=== PATIENT | female | born 1945 | race Caucasian/White ===

== ENCOUNTER 2016-10-08 13:29 | Inpatient (IN) | payer OTHER ==
[~2016-10-08] VITALS: Ht 157.5 cm; Wt 86.4 kg
[2016-10-08 16:40] VITALS: Ht 157.5 cm; Wt 86.4 kg
[2016-10-08] MEDS ORDERED: bp pill (16:53)
[2016-10-08 16:55] VITALS: BP 145/77; PULSE 62; RESP 18
[2016-10-08] MEDS ORDERED: ZOLPIDEM 5 MG TAB PO PRN (17:30)
[2016-10-08] MEDS ORDERED: HYDROCODONE/APAP (5/325) TAB PO PRN (17:30)
[2016-10-08] MEDS ORDERED: ONDANSETRON 4 MG INJ IV PRN (17:30)
[2016-10-08] MEDS: DEXTROSE 5%-0.45% NACL 1,000 ML IV SCH (17:57)
[2016-10-08 20:08] VITALS: BP 156/74; RESP 18
[2016-10-08] MEDS: DOCUSATE SODIUM 100 MG CAP PO SCH (21:21)
[2016-10-09] VITALS (25 sets, daily range): BP systolic 132–152; BP diastolic 59–78; PULSE 58–94; RESP 14–23
[2016-10-09] MEDS: CEFTRIAXONE 1 GM/50 ML (PMX) 50 ML IVPB SCH (03:21)
[2016-10-09] MEDS ORDERED: PANTOPRAZOLE 40 MG INJ IV SCH (06:00)
[2016-10-09 07:23] LABS: ADD SCAN DIFF NO
[2016-10-09 07:31] LABS: BASOPHIL # 0.1 10^3/ul (0.0-0.1); EOSINOPHILS # 0.3 10^3/ul (0.0-0.5); EOSINOPHILS % 5.4 % (0.0-7.0); HEMATOCRIT 36.6 % (37.0-47.0); HEMOGLOBIN 11.9 g/dl (12.0-16.0); LYMPHOCYTES # 2.3 10^3/ul (0.8-2.9); LYMPHOCYTES % 36.5 % (15.0-51.0); MEAN CORPUSCULAR HEMOGLOBIN 29.7 pg (29.0-33.0); MEAN CORPUSCULAR HGB CONC 32.5 g/dl (32.0-37.0); MEAN CORPUSCULAR VOLUME 91.3 fl (82.0-101.0); MEAN PLATELET VOLUME 10.5 fl (7.4-10.4); MONOCYTE # 0.6 10^3/ul (0.3-0.9); MONOCYTES % 9.4 % (0.0-11.0); NEUTROPHILS % 47.4 % (39.0-77.0); PLATELET COUNT 276 10^3/UL (140-415); RED BLOOD COUNT 4.01 10^6/ul (4.20-5.40); RED CELL DISTRIBUTION WIDTH 13.3 % (11.5-14.5); WHITE BLOOD COUNT 6.3 10^3/ul (4.8-10.8)
[2016-10-09 07:54] LABS: ALBUMIN 3.6 g/dl (3.3-4.9)
[2016-10-09 07:55] LABS: POTASSIUM 4.1 mmol/L (3.5-5.1)
[2016-10-09 07:57] LABS: ALBUMIN/GLOBULIN RATIO 1.02; BILIRUBIN,INDIRECT 0.5 mg/dl (0-1.1); BILIRUBIN,TOTAL 0.5 mg/dl (0.2-1.3); CREATININE 0.87 mg/dl (0.44-1.00); TOTAL PROTEIN 7.1 g/dl (6.1-8.1)
[2016-10-09 07:58] LABS: CALCIUM 9.2 mg/dl (8.4-10.2)
[2016-10-09] MEDS: DOCUSATE SODIUM 100 MG CAP PO SCH ×2 (08:25→20:14)
--- NOTE | 2016-10-09 10:21 | PN ---
Date/Time of Note Date/Time of Note DATE: 10/09/16 TIME: Assessment/Plan Assessment/Plan Chief Complaint/Hosp Course 1. Pancreatitis probably secondary to gallstones improved -Lap tyson -Judicious fluid management 2. Cholelithiasis with possible mild cholecystitis -Antibiotics -IV fluids -OR 3. Transaminitis with possible choledocholithiasis. MRCP negative -Intraoperative cholangiogram 4. Morbid obesity with BMI of 35 and comorbidities -Nutrition optimization encouraged -Exercise encouraged 5. Hypertension -Nutrition and medication optimization -Weight loss encouraged 6. Dyslipidemia -Nutrition and medication optimization -Weight loss encouraged 7. Anemia without evidence of acute blood loss -Monitor Thank you, Problems: Subjective 24 Hr Interval Summary Denies fevers or chills. Minimal abdominal pain. No nausea vomiting. No chest pain or shortness of breath. No visual or neurologic changes. No dysuria. Bowel function. No headache. No seizure. No rashes. Skin color improved. Exam/Review of Systems Vital Signs Vitals Vital Signs Date Time Temp Pulse Resp B/P Pulse Ox O2 Delivery O2 Flow Rate FiO2 10/09/16 07:47 98.4 60 17 134/62 92 10/08/16 16:55 Room Air Intake and Output 10/08/16 10/08/16 10/09/16 15:00 23:00 07:00 Intake Total 300 ml Balance 300 ml Exam Constitutional: alert, obese, oriented, No distress Psych: nl mood/affect, No anxiety, No confusion Head: atraumatic, normocephalic Eyes: EOMI, PERRL, nl conjunctiva, No icteric ENMT: mucosa pink and moist, nl external ears & nose, nl lips & teeth Neck: non-tender, supple, No jvd Respiratory: normal air movement, No congested cough, No labored breathing Cardiovascular: nl pulses, regular rate and rhythm, No edema Gastrointestinal: soft, tender (Min epigastric), No firm, No rebound or guarding Musculoskeletal: nl extremities to inspection, nl gait and stance, No joint tenderness Extremities: normal pulses, No calf tenderness, No cyanosis Neurological: nl mental status, nl speech, nl strength, No confused Skin: nl turgor, No diaphoresis, No rash or lesions Lymph: nl lymph nodes Results Result Diagram: 10/09/1661910/09/16619 JOLENE THAKKAR MD Oct 09, 2016 10:21
--- NOTE | 2016-10-09 10:39 | CONS ---
DATE OF ADMISSION: 10/08/2016 DATE OF CONSULTATION: 10/09/2016 CHIEF COMPLAINT: 1. Abdominal pain. 2. Gallstone pancreatitis. 3. Transaminitis. 4. Morbid obesity. 5. Hypertension. 6. Dyslipidemia. 7. Urinary tract infection. HISTORY OF PRESENT ILLNESS: Ms. Shanthi Day is a 71-year-old female with multiple comorbidi ties who presented to [facility] with 3 days of abdominal pain associated with nausea and v omiting, but no fevers or chills. No chest pain or shortness of breath. No visual or neurologic ch anges. Her skin became more discolored and yellowish. At [place] she was found to have distende d gallbladder on ultrasound with multiple stones and slight pericholecystic fluid. There was biliar y dilatation up to [address] head showed also distended gallbladder with slightly dilated commo n bile duct. She also had stranding of the pancreas, particularly in the pancreatic tail and had LF Ts, amylase and lipase were elevated. The patient was admitted for further care and treatment. [facility] P apparently did not identify choledocholithiasis. The patient was planned to have surgery at [facility]; however, due to insurance capitation she was transferred here for further care and treatment. PAST MEDICAL HISTORY: 1. Morbid obesity with BMI of 35. 2. Hypertension. 3. Dyslipidemia. 4. Transaminitis. 5. Cholelithiasis. 6. Possible mild cholecystitis. 7. Pancreatitis. 8. Possible choledocholithiasis. PAST SURGICAL HISTORY: Denies. FAMILY HISTORY: Noncontributory. REVIEW OF SYSTEMS: A 12-point of systems negative unless addressed in HPI. SOCIAL HISTORY: Denies alcohol, drugs or tobacco. PHYSICAL EXAMINATION: VITAL SIGNS: Temperature is 98.2, pulse 62, blood pressure 145/77, satting 99% on room air. GENERAL: No acute distress, obese. HEENT: Pupils equal, reactive. No scleral icterus. Mucous membranes are moist. NECK: Supple, no JVD. CHEST: Normal respiratory effort. No wheezing. HEART: S1, S2 present. ABDOMEN: Soft, minimally tender in the epigastric region, no rebound, no guarding, not rigid. Nega tive Adam's. EXTREMITIES: No edema. VASCULAR: Capillary refill is 2 seconds. NEUROLOGIC: Alert, oriented, moves all 4 extremities grossly. SKIN: No rashes. No jaundice. LABORATORY AND RADIOGRAPHIC: As per chart and HPI. ASSESSMENT AND PLAN: Shanthi Day is a 71-year-old female with multiple significant comorbid ities. 1. Pancreatitis, probably secondary to gallstones has improved. We will obtain repeat labs. We wi ll proceed with cholecystectomy to prevent future attacks. 2. Transaminitis secondary to above and probably a passed gallstone; however, there may be smaller common duct stones (choledocholithiasis). We will try to obtain cholangiogram if the duct still loo ks dilated. 3. Morbid obesity with BMI 35 and comorbidities. Encourage diet optimization and exercise. 4. Hypertension. Encourage nutrition and medication optimization and weight loss. 5. Dyslipidemia. Encourage nutrition, medication optimization and weight loss. 6. Anemia without evidence of acute blood loss. Continue monitoring. Thank you very much for consulting me in this patient's care. Dictated By: JOLENE PALAFOX/LORA Conf#: [id number] DID#: [id number]
[2016-10-09 11:05] LABS: AMYLASE 91 U/L (11-123)
[2016-10-09] MEDS ORDERED: PROPOFOL 20 ML ONE (12:19)
[2016-10-09] MEDS ORDERED: FENTAnyl 50 MCG/ML VIAL ONE (12:19)
[2016-10-09] MEDS ORDERED: MIDAZOLAM 1 MG/ML 2 ML INJ ONE (12:19)
[2016-10-09] MEDS ORDERED: ROCURONIUM 50 MG INJ ONE (12:19)
[2016-10-09] MEDS ORDERED: IOHEXOL 300MG/ML 30 ML BTL ONE (12:25)
[2016-10-09] MEDS ORDERED: BUPIVACAINE 0.25%/EPI (SDV) 30 ML INJ ONE (12:25)
[2016-10-09] MEDS ORDERED: LIDOCAINE 1% (MPF) 30 ML INJ ONE (12:25)
[2016-10-09] MEDS ORDERED: ROPIVACAINE 0.2% 20 ML VIAL ONE (12:55)
[2016-10-09] MEDS ORDERED: ROPIVACAINE 0.5 % 30 ML VIAL ONE (12:56)
[2016-10-09] MEDS ORDERED: DIPHENHYDRAMINE 50 MG INJ IV PRN (13:30)
[2016-10-09] MEDS ORDERED: ONDANSETRON 4 MG INJ IV PRN (13:30)
[2016-10-09] MEDS ORDERED: FENTAnyl 50 MCG/ML VIAL IV PRN ×3 (13:30)
[2016-10-09] MEDS ORDERED: morphine (1 MG/ML) 10ML SYRINGE IV PRN ×3 (13:30)
[2016-10-09] MEDS ORDERED: HYDROmorphONE (0.2 MG/ML) 10ML SYG IV PRN ×3 (13:30)
[2016-10-09] MEDS ORDERED: METOCLOPRAMIDE 10 MG INJ IV PRN (13:30)
[2016-10-09] MEDS ORDERED: LABETALOL HCL 20MG INJ IV PRN (13:30)
[2016-10-09] MEDS ORDERED: EPHEDrine SULFATE 50 MG/5 ML SYG IV PRN (13:30)
[2016-10-09] MEDS ORDERED: hydrALAzine 20 MG INJ IV PRN (13:30)
[2016-10-09] MEDS ORDERED: MEPERIDINE 25 MG INJ IV PRN (13:30)
[2016-10-09] MEDS ORDERED: LABETALOL HCL 20MG INJ ONE (14:17)
[2016-10-09] MEDS ORDERED: GLYCOPYRROLATE 0.4 MG INJ ONE (14:18)
[2016-10-09] MEDS ORDERED: ONDANSETRON 4 MG INJ ONE (14:18)
[2016-10-09] MEDS ORDERED: NEOSTIGMINE 3 MG/3 ML SYRINGE ONE (14:18)
[2016-10-09] MEDS ORDERED: METOCLOPRAMIDE 10 MG INJ ONE (14:18)
[2016-10-09] MEDS ORDERED: KETOROLAC 30 MG INJ ONE (14:18)
[2016-10-09] MEDS ORDERED: DEXAMETHASONE 4 MG/ML 1 ML INJ ONE (14:18)
--- NOTE | 2016-10-09 14:22 | RADRPT ---
PROCEDURE: XR intraoperative cholangiogram.. CLINICAL INDICATION: Right upper quadrant abdomen pain. Intraoperative. TECHNIQUE: 4 frontal views of the right upper quadrant of the abdomen were obtained in the operati ng room. Images were obtained during injection of approximately 10 ml of Omnipaque-300 into the sebastien iary system. COMPARISON: None. FINDINGS: Surgical instruments are noted overlying the right upper quadrant of the abdomen. Contrast was inje cted into the cystic duct. The cystic duct, common bile duct, common hepatic duct, and main intrahepatic bile ducts all appear widely patent. Contrast enters the duodenum. There is no filling defect or evidence of obstruction. IMPRESSION: 1. Normal intraoperative cholangiogram with no evidence of filling defect or obstruction. RPTAT: QQ .Sergei Ugarte MD, MD Date Time Electronically viewed and signed by .Sergei Ugarte MD, on 10/09/2016 14:22 .R/
--- NOTE | 2016-10-09 14:53 | OPR ---
Date/Time of Note Date/Time of Note DATE: 10/09/16 TIME: 14:45 Operative Report Procedure Date: Oct 09, 2016 Procedure Description Preoperative Diagnosis: Gallstone pancreatitis Transaminitis Symptomatic cholelithiasis and mild cholecystitis BMI 35 Postoperative Diagnosis: Gallstone pancreatitis Transaminitis Symptomatic cholelithiasis and mild cholecystitis BMI 35 Operation(s) Performed: 1. 3 port laparoscopic cholecystectomy 2. Laparoscopic liver wedge resection biopsy 3. Laparoscopic intraoperative cholangiogram 4. Local anesthetic injection, [id number] Surgeon: JOLENE THAKKAR MD Anesthesia: general, local, & regional Anesthesiologist: Stanley Lopez MD Estimated Blood Loss: 20 ml's Specimens: Liver Gallbladder Tubes/Drains: None Complications: None Pt Condition Post Procedure: stable Disposition: PACU Indications: 71-year-old female with gallstones and abdominal pain here for cholecystectomy. Risks include but are not limited to bleeding, infection, abscess, seroma, damage to intestines, damage to the liver, damage to biliary tree, hernia formation, chronic pain, biloma, need for reoperations or further surgeries, IL , stroke, PE, DVT, pneumonia, organ failures, or even . Procedure Description: Patient was brought and placed supine on the operating table SCDs were placed, preoperative antibiotics were administered, all pressure points were well-padded , and after induction of anesthesia patient was prepped and draped in usual sterile fashion and timeout was performed. Bilateral TAP block was performed by anesthesia prior prepping her. Incision was made in the supraumbilical region, Veress was safely inserted, and after a negative SIP test, abdomen was insufflated to 15mmHg. Veress was removed and 5mm port was safely inserted. Laparoscopy was performed with a 5 mm 30 scope. No injuries were identified. The liver looks somewhat abnormal color. Gallbladder is without evidence of section. 12 mm port is placed in subxiphoid under direct visualization followed by another 5 mm port in the right upper quadrant. All port sites were injected with quarter percent Marcaine with epi and 1% lidocaine prior to any incisions. Patient was placed in reverse Trendelenburg and right side up on gallbladder was retracted superolaterally. The gallbladder was large and distended. Using electrocautery and blunt dissection I was able to identify the cystic artery and cystic duct. The duct [was dilated but] tapered into the gallbladder. Full critical angle view was identified. Cystic duct was clipped twice proximally once distally then transected. Decision was made to perform a cholangiogram. Cystotomy was created cholangiogram catheter was inserted and cholangiography was performed identifying dilated biliary intra-and extrahepatic. There is meniscus findings in the distal common bile duct with very minimal duodenal feeling after lots of pressure and contrast was used. At this point the catheter was removed and the large dilated cystic duct was transected with Endo ANKITA white load stapler with full formation of the dena. The gallbladder was taken off the liver with electrocautery. Hemostasis was obtained. Gallbladder was placed in an Endo Catch bag and removed through the subxiphoid port site. There was complete hemostasis. Due to the abnormality of the liver decision was made to perform liver wedge resection which was done with electrocautery and scissor with complete hemostasis right after. The specimen was sent to pathology for further evaluation. 12 mm made port site fascia was closed with Endo Close of an 0 Vicryl in a [id number] manner. Ports and CO2 were removed under direct visualization. Next complete hemostasis. Wounds were thoroughly irrigated skin was closed with 4-0 Monocryl in subcuticular fashion. Dermabond was applied. Patient was extubated and transferred to recovery room in stable condition and all counts were correct and the end of the operation 2.operation 2. Copies To: CC: ESTEBAN ANG MD; JOSSY BAÑUELOS MD, SAMUEL MD Oct 09, 2016 14:53
[2016-10-09] MEDS: DEXTROSE 5%-0.45% NACL 1,000 ML IV SCH (17:07)
--- NOTE | 2016-10-09 18:50 | QN ---
Documentation Comment [id number] JOSSY BAÑUELOS MD Oct 09, 2016 18:50
--- NOTE | 2016-10-09 21:10 | HP ---
DATE OF ADMISSION: 10/08/2016 HISTORY OF PRESENT ILLNESS: The patient with history of gallstone pancreatitis , transaminitis, hypertension, dyslipidemia, UTI. She was admitted to [facility], transferred here since patient is capitated here. Patient workup done there shows patient has cholecystitis, and Dr. parham saw this patient in consultation ____. The patient was transferred here for further management. PAST MEDICAL HISTORY: Hypertension, dyslipidemia, transaminitis, cholelithiasis , pancreatitis, UTI. ALLERGY HISTORY: NEGATIVE. FAMILY HISTORY: Negative. SOCIAL HISTORY: Negative. MEDICATION HISTORY: The patient is on: 1. Tylenol. 2. . 3. Zofran. 4. Protonix. 5. Ambien. REVIEW OF SYSTEMS: HEENT: Unremarkable. RESPIRATORY: Unremarkable. CARDIOVASCULAR: Unremarkable. ABDOMEN: Complaining of abdominal pain. EXTREMITIES: Unremarkable. PHYSICAL EXAMINATION: GENERAL: The patient is awake, alert. VITAL SIGNS: Stable. HEENT: Head is atraumatic, normocephalic. Pupils equal, reactive to light. NECK: Supple. No JVD. LUNGS: Clear. CARDIOVASCULAR: S1, S2 are normal. ABDOMEN: Soft, nontender. Bowel sounds present. No palpable mass or hepatosplenomegaly. No guarding, rebound tenderness. EXTREMITIES: There is no cyanosis, clubbing or edema. CENTRAL NERVOUS SYSTEM: The patient is awake, alert. No focal deficit. LABORATORY DATA: AST 180, ALT 203, alkaline phosphatase 222. IMPRESSION: 1. Cholecystitis. 2. Transaminitis. 3. Anemia. 4. Urinary tract infection. 5. Status post laparoscopic cholecystectomy. PLAN: Follow recommendation from Dr. Raji Devine, continue home medication. The patient is on Protonix, IV fluid. Orders were done. Dictated By: JOSSY BAÑUELOS MD BS/NTS Conf#: [id number] DID#: [id number]
[2016-10-10] MEDS: DEXTROSE 5%-0.45% NACL 1,000 ML IV SCH (02:13)
[2016-10-10] MEDS: CEFTRIAXONE 1 GM/50 ML (PMX) 50 ML IVPB SCH (02:15)
[2016-10-10] MEDS: PANTOPRAZOLE (EC) 40 MG TAB PO SCH (05:30)
[2016-10-10 06:10] LABS: ADD SCAN DIFF NO
[2016-10-10 06:16] LABS: BASOPHILS % 0.4 % (0.0-2.0); EOSINOPHILS % 0.1 % (0.0-7.0); HEMOGLOBIN 11.3 g/dl (12.0-16.0); LYMPHOCYTES # 1.5 10^3/ul (0.8-2.9); LYMPHOCYTES % 15.2 % (15.0-51.0); MEAN CORPUSCULAR HEMOGLOBIN 29.3 pg (29.0-33.0); MEAN CORPUSCULAR HGB CONC 32.3 g/dl (32.0-37.0); MEAN CORPUSCULAR VOLUME 90.7 fl (82.0-101.0); MEAN PLATELET VOLUME 10.7 fl (7.4-10.4); MONOCYTE # 0.8 10^3/ul (0.3-0.9); MONOCYTES % 8.4 % (0.0-11.0); NEUTROPHIL # 7.3 10^3/ul (1.6-7.5); NEUTROPHILS % 75.4 % (39.0-77.0); PLATELET COUNT 295 10^3/UL (140-415); RED BLOOD COUNT 3.86 10^6/ul (4.20-5.40); RED CELL DISTRIBUTION WIDTH 13.4 % (11.5-14.5); WHITE BLOOD COUNT 9.7 10^3/ul (4.8-10.8)
[2016-10-10 06:39] LABS: ALBUMIN 3.6 g/dl (3.3-4.9)
[2016-10-10 06:40] LABS: POTASSIUM 3.8 mmol/L (3.5-5.1)
[2016-10-10 06:42] LABS: ALBUMIN/GLOBULIN RATIO 1.05; BILIRUBIN,INDIRECT 0.2 mg/dl (0-1.1); BILIRUBIN,TOTAL 0.2 mg/dl (0.2-1.3); CREATININE 0.83 mg/dl (0.44-1.00)
[2016-10-10 06:43] LABS: CALCIUM 8.6 mg/dl (8.4-10.2)
[2016-10-10 07:05] VITALS: BP 123/58; RESP 16
[2016-10-10] MEDS: DOCUSATE SODIUM 100 MG CAP PO SCH ×2 (09:04→21:37)
--- NOTE | 2016-10-10 13:40 | PN ---
Date/Time of Note Date/Time of Note DATE: 10/10/16 TIME: 13:35 Assessment/Plan VTE Prophylaxis VTE Prophylaxis Intervention: ambulation, SCD's Lines/Catheters IV Catheter Type (from Nrs): Peripheral IV Urinary Cath still in place: No Assessment/Plan Chief Complaint/Hosp Course 1. S/p cholecystectomy, doing better 2. USe Spirometer 3. Spoke t pt to ambulate 4. Stop IV and advance diet per dr Rosen Problems: Assessment/Plan 1. Pt doing well, can be discharged per dr Rosen clearance Subjective 24 Hr Interval Summary Constitutional: improved, no complaints Eyes: no complaints ENT: no complaints Respiratory: no complaints Cardiovascular: no complaints Gastrointestinal: no complaints Genitourinary: other (flank pain) Musculoskeletal: no complaints Skin: no complaints, other (pain in postop sites) Neurologic: no complaints Endocrine: no complaints Psychological: no complaints Immunologic: no complaints Exam/Review of Systems Vital Signs Vitals Vital Signs Date Time Temp Pulse Resp B/P Pulse Ox O2 Delivery O2 Flow Rate FiO2 10/10/16 07:05 98.7 57 16 123/58 94 10/09/16 18:30 3.0 10/09/16 16:28 Nasal Cannula Intake and Output 10/09/16 10/09/16 10/10/16 15:00 23:00 07:00 Intake Total 740 ml 1110 ml Output Total 10 ml Balance 730 ml 1110 ml Exam Constitutional: alert, oriented Eyes: nl conjunctiva ENMT: nl external ears & nose Neck: supple Respiratory: clear to auscultation Cardiovascular: regular rate and rhythm Gastrointestinal: distended, soft, surgical scars Musculoskeletal: nl extremities to inspection Extremities: normal pulses Skin: puncture Results Result Diagram: 10/10/16 0430 10/10/16 0430 Results 24 hrs Laboratory Tests Test 10/10/16 04:30 Alanine Aminotransferase (ALT/SGPT) 214 H Albumin 3.6 Albumin/Globulin Ratio 1.05 Alkaline Phosphatase 209 H Anion Gap 17 H Aspartate Amino Transf (AST/SGOT) 211 H Basophils # 0.0 Basophils % 0.4 Blood Urea Nitrogen 14 Calcium Level 8.6 Carbon Dioxide Level 29 Chloride Level 100 Creatinine 0.83 Direct Bilirubin 0.00 Eosinophils # 0.0 Eosinophils % 0.1 Globulin 3.40 H Glucose Level 98 Hematocrit 35.0 L Hemoglobin 11.3 L Indirect Bilirubin 0.2 Lymphocytes # 1.5 Lymphocytes % 15.2 Mean Corpuscular Hemoglobin 29.3 Mean Corpuscular Hemoglobin Concent 32.3 Mean Corpuscular Volume 90.7 Mean Platelet Volume 10.7 H Monocytes # 0.8 Monocytes % 8.4 Neutrophils # 7.3 Neutrophils % 75.4 Nucleated Red Blood Cells # 0.0 Nucleated Red Blood Cells % 0.0 Platelet Count 295 Potassium Level 3.8 Red Blood Count 3.86 L Red Cell Distribution Width 13.4 Sodium Level 142 Total Bilirubin 0.2 Total Protein 7.0 White Blood Count 9.7 # Medications Medications Current Medications Dextrose/Sodium Chloride (D5-1/2ns) 1,000 ml @ 40 mls/hr Q24H IV Last administered on 10/10/16 02:13; Admin Dose 40 MLS/HR; Start 10/08/16 at 17:30 Acetaminophen/ Hydrocodone Bitart ([place] (5/325)) 1 tab Q4H PRN PO PAIN; Start 10/08/16 at 17:30 Acetaminophen 650 mg 650 mg Q4H PRN PO PAIN AND OR ELEVATED TEMP; Start at 17:30 Ceftriaxone Sodium (Rocephin) 50 ml @ 100 mls/hr Q24H IVPB Last administered on 10/10/16 02:15; Admin Dose 100 MLS/HR; Start 10/09/16 at 03:00 Docusate Sodium (Colace) 100 mg BID PO Last administered on 10/10/16 09:04; Admin Dose 100 MG; Start 10/08/16 at 21:00 Ondansetron HCl (Zofran Inj) 4 mg Q6H PRN IV NAUSEA AND/OR VOMITING; Start 10/08 at 17:30 Zolpidem Tartrate (Ambien) 5 mg HS PRN PO INSOMNIA; Start 10/08/16 at 17:30 Pantoprazole (Protonix Tab) 40 mg DAILY@06 PO Last administered on 10/10/16 05 :30; Admin Dose 40 MG; Start 10/10/16 at 06:00 JAMES WINTER Oct 10, 2016 13:39
--- NOTE | 2016-10-10 16:17 | CONS ---
Date/Time of Note Date/Time of Note DATE: 10/10/16 TIME: 16:09 Assessment/Plan Assessment/Plan Chief Complaint/Hosp Course Impression: 1. cholecystitis S/p cholecystectomy 2. gallstones with possible retained stone as IOC showed biliary dilation 3. pancreatitis 4. anemia Recommendation 1. advance diet per Dr. Devine 2. ERCP tentatively planned for Wednesday given concerns of retained gallstone Problems: Consultation Date/Type/Reason Admit Date/Time Oct 08, 2016 at 16:18 Date of Consultation: Oct 10, 2016 Type of Consultation: GI Reason for Consultation possible retained CBD stone Hx of Present Illness 71-year-old female with multiple comorbidities who is admitted with 3 days of abdominal pain associated with nausea and vomiting, but no fevers or chills. No chest pain or shortness of breath. No visual or neurologic changes. Her skin became more discolored and yellowish. She was found to have distended gallbladder on ultrasound with multiple stones and slight pericholecystic fluid. There was biliary dilatation up to [address] head showed also distended gallbladder with slightly dilated common bile duct. She also had stranding of the pancreas, particularly in the pancreatic tail and had LFTs, amylase and lipase were elevated. TMRCP apparently did not identify choledocholithiasis. She was taken for cholecystectomy by Dr. Devine. Although IOC was clear, in discussing with Dr. Devine, it may contain retained stone. All point ROS was administered, pertinent positives and negatives in HPI otherwise negative. Constitutional: improved, no complaints Eyes: no complaints ENT: no complaints Respiratory: no complaints Cardiovascular: no complaints Gastrointestinal: no complaints Genitourinary: other (flank pain) Musculoskeletal: no complaints Skin: no complaints, other (pain in postop sites) Neurologic: no complaints Endocrine: no complaints Psychological: no complaints Immunologic: no complaints Past Medical History Medical History: gallstones, high cholesterol, hypertension, pancreatitis, urinary tract infection Past Surgical History Past Surgical Hx: cholecystectomy Family History Significant Family History: no pertinent family hx Social History Alcohol Use: none Smoking Status: Never smoker Drug Use: none Exam/Review of Systems Vital Signs Vitals Vital Signs Date Time Temp Pulse Resp B/P Pulse Ox O2 Delivery O2 Flow Rate FiO2 10/10/16 07:05 98.7 57 16 123/58 94 10/09/16 18:30 3.0 10/09/16 16:28 Nasal Cannula Intake and Output 10/09/16 10/09/16 10/10/16 15:00 23:00 07:00 Intake Total 740 ml 1110 ml Output Total 10 ml Balance 730 ml 1110 ml Exam Constitutional: alert, oriented, well developed Psych: nl mood/affect, no complaints Head: atraumatic, normocephalic Eyes: EOMI, nl conjunctiva, nl lids, nl sclera ENMT: mucosa pink and moist, nl external ears & nose, nl lips & teeth, nl nasal mucosa & septum Neck: non-tender, supple Respiratory: clear to auscultation, normal air movement Cardiovascular: nl pulses, regular rate and rhythm Gastrointestinal: bowel sounds, soft, tender (at surgical site, no R/G) Results Result Diagram: 10/10/16 0430 10/10/16 0430 Results 24 hrs Laboratory Tests Test 10/10/16 04:30 Alanine Aminotransferase (ALT/SGPT) 214 H Albumin 3.6 Albumin/Globulin Ratio 1.05 Alkaline Phosphatase 209 H Anion Gap 17 H Aspartate Amino Transf (AST/SGOT) 211 H Basophils # 0.0 Basophils % 0.4 Blood Urea Nitrogen 14 Calcium Level 8.6 Carbon Dioxide Level 29 Chloride Level 100 Creatinine 0.83 Direct Bilirubin 0.00 Eosinophils # 0.0 Eosinophils % 0.1 Globulin 3.40 H Glucose Level 98 Hematocrit 35.0 L Hemoglobin 11.3 L Indirect Bilirubin 0.2 Lymphocytes # 1.5 Lymphocytes % 15.2 Mean Corpuscular Hemoglobin 29.3 Mean Corpuscular Hemoglobin Concent 32.3 Mean Corpuscular Volume 90.7 Mean Platelet Volume 10.7 H Monocytes # 0.8 Monocytes % 8.4 Neutrophils # 7.3 Neutrophils % 75.4 Nucleated Red Blood Cells # 0.0 Nucleated Red Blood Cells % 0.0 Platelet Count 295 Potassium Level 3.8 Red Blood Count 3.86 L Red Cell Distribution Width 13.4 Sodium Level 142 Total Bilirubin 0.2 Total Protein 7.0 White Blood Count 9.7 # Medications Medications Current Medications Dextrose/Sodium Chloride (D5-1/2ns) 1,000 ml @ 40 mls/hr Q24H IV Last administered on 10/10/16t 02:13; Admin Dose 40 MLS/HR; Start 10/08/16 at 17:30; Stop 10/10/16 at 18:00 Acetaminophen/ Hydrocodone Bitart ([place] (5/325)) 1 tab Q4H PRN PO PAIN; Start 10/08/16 at 17:30 Acetaminophen 650 mg 650 mg Q4H PRN PO PAIN AND OR ELEVATED TEMP; Start at 17:30 Ceftriaxone Sodium (Rocephin) 50 ml @ 100 mls/hr Q24H IVPB Last administered on 10/10/16 02:15; Admin Dose 100 MLS/HR; Start 10/09/16 at 03:00 Docusate Sodium (Colace) 100 mg BID PO Last administered on 10/10/16 09:04; Admin Dose 100 MG; Start 10/08/16 at 21:00 Ondansetron HCl (Zofran Inj) 4 mg Q6H PRN IV NAUSEA AND/OR VOMITING; Start 10/08 at 17:30 Zolpidem Tartrate (Ambien) 5 mg HS PRN PO INSOMNIA; Start 10/08/16 at 17:30 Pantoprazole (Protonix Tab) 40 mg DAILY@06 PO Last administered on 10/10/16 05 :30; Admin Dose 40 MG; Start 10/10/16 at 06:00 MERYL SCRUGGS MD Oct 10, 2016 16:16
--- NOTE | 2016-10-10 16:17 | PN ---
Date/Time of Note Date/Time of Note DATE: 10/10/16 TIME: 16:13 Assessment/Plan Lines/Catheters IV Catheter Type (from [facility]): Peripheral IV Sahni in Place (from [facility]): No Assessment/Plan Chief Complaint/Hosp Course 1. Pancreatitis probably secondary to gallstones improved 2. Cholelithiasis with mild cholecystitis s/p 3 port lap tyson, ioc, liver bx 3. Transaminitis with dilated biliary system and positive IOC (despite the official read and negative mrcp). -gi for ercp 4. Morbid obesity with BMI of 35 and comorbidities -Nutrition optimization encouraged -Exercise encouraged 5. Hypertension -Nutrition and medication optimization -Weight loss encouraged 6. Dyslipidemia -Nutrition and medication optimization -Weight loss encouraged 7. Anemia without evidence of acute blood loss -Monitor Thank you, Problems: Subjective 24 Hr Interval Summary s/p 3 port lap tyson, liver bx, ioc > probable choledocholithiasis despite the final read. Min pain. Denies fevers or chills. No nausea vomiting. No chest pain or shortness of breath. No visual or neurologic changes. No dysuria. Bowel function. No headache. No seizure. No rashes. Exam/Review of Systems Vital Signs Vitals Vital Signs Date Time Temp Pulse Resp B/P Pulse Ox O2 Delivery O2 Flow Rate FiO2 10/10/16 07:05 98.7 57 16 123/58 94 10/09/16 18:30 3.0 10/09/16 16:28 Nasal Cannula Intake and Output 10/09/16 10/09/16 10/10/16 15:00 23:00 07:00 Intake Total 740 ml 1110 ml Output Total 10 ml Balance 730 ml 1110 ml Exam Free Text/Dictation Constitutional: alert, obese, oriented, No distress Psych: nl mood/affect, No anxiety, No confusion Head: atraumatic, normocephalic Eyes: EOMI, PERRL, nl conjunctiva, No icteric ENMT: mucosa pink and moist, nl external ears & nose, nl lips & teeth Neck: non-tender, supple, No jvd Respiratory: normal air movement, No congested cough, No labored breathing Cardiovascular: nl pulses, regular rate and rhythm, No edema Gastrointestinal: soft, min tender, No firm, No rebound or guarding Musculoskeletal: nl extremities to inspection, nl gait and stance, No joint tenderness Extremities: normal pulses, No calf tenderness, No cyanosis Neurological: nl mental status, nl speech, nl strength, No confused Skin: nl turgor, No diaphoresis, No rash or lesions Lymph: nl lymph nodes Results Result Diagram: 10/10/16 0430 10/10/16 0430 JOLENE THAKKAR MD Oct 10, 2016 16:16
[2016-10-10 21:00] VITALS: BP 140/69; PULSE 66
[2016-10-11] MEDS: CEFTRIAXONE 1 GM/50 ML (PMX) 50 ML IVPB SCH (03:11)
[2016-10-11] MEDS: PANTOPRAZOLE (EC) 40 MG TAB PO SCH (05:46)
[2016-10-11] MEDS: DOCUSATE SODIUM 100 MG CAP PO SCH ×2 (09:07→21:50)
[2016-10-11 09:11] VITALS: BP 146/65; PULSE 64
--- NOTE | 2016-10-11 16:28 | CONS ---
Date/Time of Note Date/Time of Note DATE: 10/11/16 TIME: 16:26 Assessment/Plan Assessment/Plan Chief Complaint/Hosp Course Impression: 1. cholecystitis S/p cholecystectomy 2. gallstones with possible retained stone as IOC showed biliary dilation 3. pancreatitis 4. anemia Recommendation 1. advance diet per Dr. Devine 2. ERCP tentatively planned for Wednesday given concerns of retained gallstone 3. Risks, benefits and alternatives of the ERCP explained to the family and patient through [employer], all of their questions were answered to their full satisfaction and patient wishes to proceed. Problems: Consultation Date/Type/Reason Admit Date/Time Oct 08, 2016 at 16:18 Initial Consult Date 10/10/16 Type of Consultation: GI 24 HR Interval Summary Free Text/Dictation mild abdominal pain, no n/v Constitutional: improved Exam/Review of Systems Vital Signs Vitals Vital Signs Date Time Temp Pulse Resp B/P Pulse Ox O2 Delivery O2 Flow Rate FiO2 10/11/16 09:11 98.0 64 146/65 94 3.0 10/10/16 07:05 16 10/09/16 16:28 Nasal Cannula Intake and Output 10/10/16 10/10/16 10/11/16 15:00 23:00 07:00 Intake Total 1180 ml 370 ml Balance 1180 ml 370 ml Exam Constitutional: alert, obese, oriented, well developed Psych: nl mood/affect, no complaints Head: atraumatic, normocephalic Eyes: EOMI, nl conjunctiva, nl lids, nl sclera ENMT: mucosa pink and moist, nl external ears & nose, nl lips & teeth, nl nasal mucosa & septum Neck: non-tender, supple Respiratory: clear to auscultation, normal air movement Cardiovascular: nl pulses, regular rate and rhythm Gastrointestinal: bowel sounds, soft, tender (incisional pain) Results Result Diagram: 10/10/1642910/10/16 043 Medications Medications Current Medications Acetaminophen/ Hydrocodone Bitart ([place] (5/325)) 1 tab Q4H PRN PO PAIN Last administered on 10/11/16t 13:02; Admin Dose 1 TAB; Start 10/08/16 at 17:30 Acetaminophen 650 mg 650 mg Q4H PRN PO PAIN AND OR ELEVATED TEMP; Start at 17:30 Ceftriaxone Sodium (Rocephin) 50 ml @ 100 mls/hr Q24H IVPB Last administered on 10/11/16 03:11; Admin Dose 100 MLS/HR; Start 10/09/16 at 03:00 Docusate Sodium (Colace) 100 mg BID PO Last administered on 10/11/16 09:07; Admin Dose 100 MG; Start 10/08/16 at 21:00 Ondansetron HCl (Zofran Inj) 4 mg Q6H PRN IV NAUSEA AND/OR VOMITING; Start 10/08 at 17:30 Zolpidem Tartrate (Ambien) 5 mg HS PRN PO INSOMNIA; Start 10/08/16 at 17:30 Pantoprazole (Protonix Tab) 40 mg DAILY@06 PO Last administered on 10/11/16 05 :46; Admin Dose 40 MG; Start 10/10/16 at 06:00 MERYL SCRUGGS MD Oct 11, 2016 16:28
[2016-10-11] MEDS ORDERED: INDOMETHACIN 50 MG SUPP PR ONE (17:00)
--- NOTE | 2016-10-11 17:29 | PN ---
Date/Time of Note Date/Time of Note DATE: 10/11/16 TIME: 17:27 Assessment/Plan VTE Prophylaxis VTE Prophylaxis Intervention: other Lines/Catheters IV [facility] Type (from [facility]): Peripheral IV Urinary Cath still in place: No Assessment/Plan Chief Complaint/Hosp Course S/P LAP DWAYNE CBD STONE PLAN PER ERCP AM Problems: Subjective 24 Hr Interval Summary Respiratory: no complaints Cardiovascular: no complaints Exam/Review of Systems Vital Signs Vitals Vital Signs Date Time Temp Pulse Resp B/P Pulse Ox O2 Delivery O2 Flow Rate FiO2 10/11/16 09:11 98.0 64 146/65 94 3.0 10/10/16 07:05 16 10/09/16 16:28 Nasal Cannula Intake and Output 10/10/16 10/10/16 10/11/16 15:00 23:00 07:00 Intake Total 1180 ml 370 ml Balance 1180 ml 370 ml Exam Respiratory: clear to auscultation Cardiovascular: regular rate and rhythm Gastrointestinal: soft Musculoskeletal: nl extremities to inspection Extremities: normal pulses Results Result Diagram: 10/10/16 0430 10/10/16 0430 Medications Medications Current Medications Acetaminophen/ Hydrocodone Bitart ([place] (5/325)) 1 tab Q4H PRN PO PAIN Last administered on 10/11/16 13:02; Admin Dose 1 TAB; Start 10/08/16 at 17:30 Acetaminophen 650 mg 650 mg Q4H PRN PO PAIN AND OR ELEVATED TEMP; Start at 17:30 Ceftriaxone Sodium (Rocephin) 50 ml @ 100 mls/hr Q24H IVPB Last administered on 10/11/16 03:11; Admin Dose 100 MLS/HR; Start 10/09/16 at 03:00 Docusate Sodium (Colace) 100 mg BID PO Last administered on 10/11/16 09:07; Admin Dose 100 MG; Start 10/08/16 at 21:00 Ondansetron HCl (Zofran Inj) 4 mg Q6H PRN IV NAUSEA AND/OR VOMITING; Start 10/08 at 17:30 Zolpidem Tartrate (Ambien) 5 mg HS PRN PO INSOMNIA; Start 10/08/16 at 17:30 Pantoprazole (Protonix Tab) 40 mg DAILY@06 PO Last administered on 10/11/16 05 :46; Admin Dose 40 MG; Start 10/10/16 at 06:00 JOSSY BAÑUELOS MD Oct 11, 2016 17:28
--- NOTE | 2016-10-11 17:54 | PN ---
Date/Time of Note Date/Time of Note DATE: 10/11/16 TIME: 17:53 Assessment/Plan Lines/Catheters IV Catheter Type (from [facility]): Peripheral IV Sahni in Place (from [facility]): No Assessment/Plan Chief Complaint/Hosp Course 1. Pancreatitis probably secondary to gallstones improved 2. Cholelithiasis with mild cholecystitis s/p 3 port lap tyson, ioc, liver bx 3. Transaminitis with dilated biliary system and positive IOC (despite the official read and negative mrcp). -gi for ercp 4. Morbid obesity with BMI of 35 and comorbidities -Nutrition optimization encouraged -Exercise encouraged 5. Hypertension -Nutrition and medication optimization -Weight loss encouraged 6. Dyslipidemia -Nutrition and medication optimization -Weight loss encouraged 7. Anemia without evidence of acute blood loss -Monitor Thank you, Problems: Subjective 24 Hr Interval Summary ERCP pending wednesday. s/p 3 port lap tyson, liver bx, ioc > probable choledocholithiasis despite the final read. Min pain. Denies fevers or chills. No nausea vomiting. No chest pain or shortness of breath. No visual or neurologic changes. No dysuria. Bowel function. No headache. No seizure. No rashes. Exam/Review of Systems Vital Signs Vitals Vital Signs Date Time Temp Pulse Resp B/P Pulse Ox O2 Delivery O2 Flow Rate FiO2 10/11/16 09:11 98.0 64 146/65 94 3.0 10/10/16 07:05 16 10/09/16 16:28 Nasal Cannula Intake and Output 10/10/16 10/10/16 10/11/16 15:00 23:00 07:00 Intake Total 1180 ml 370 ml Balance 1180 ml 370 ml Exam Free Text/Dictation Constitutional: alert, obese, oriented, No distress Psych: nl mood/affect, No anxiety, No confusion Head: atraumatic, normocephalic Eyes: EOMI, PERRL, nl conjunctiva, No icteric ENMT: mucosa pink and moist, nl external ears & nose, nl lips & teeth Neck: non-tender, supple, No jvd Respiratory: normal air movement, No congested cough, No labored breathing Cardiovascular: nl pulses, regular rate and rhythm, No edema Gastrointestinal: soft, min tender, No firm, No rebound or guarding Musculoskeletal: nl extremities to inspection, nl gait and stance, No joint tenderness Extremities: normal pulses, No calf tenderness, No cyanosis Neurological: nl mental status, nl speech, nl strength, No confused Skin: nl turgor, No diaphoresis, No rash or lesions Lymph: nl lymph nodes Results Result Diagram: 10/10/16 0430 10/10/16 0430 JOLENE THAKKAR MD Oct 11, 2016 17:54
[2016-10-11] MEDS: hydrALAzine 20 MG INJ IV PRN (21:50)
[2016-10-11] MEDS ORDERED: POLYETHYLENE GLYCOL 17 GM PACKET PO PRN (22:00)
[2016-10-11 23:35] VITALS: BP 166/79; RESP 16
[2016-10-11 23:45] VITALS: BP 143/72
[2016-10-12] MEDS: CEFTRIAXONE 1 GM/50 ML (PMX) 50 ML IVPB SCH (03:04)
[2016-10-12] MEDS: PANTOPRAZOLE (EC) 40 MG TAB PO SCH (05:16)
[2016-10-12 06:56] LABS: ADD SCAN DIFF NO
[2016-10-12 07:01] LABS: BASOPHIL # 0.1 10^3/ul (0.0-0.1); BASOPHILS % 0.9 % (0.0-2.0); EOSINOPHILS # 0.4 10^3/ul (0.0-0.5); EOSINOPHILS % 5.8 % (0.0-7.0); HEMATOCRIT 37.2 % (37.0-47.0); HEMOGLOBIN 11.9 g/dl (12.0-16.0); LYMPHOCYTES # 2.8 10^3/ul (0.8-2.9); MEAN CORPUSCULAR HEMOGLOBIN 29.7 pg (29.0-33.0); MEAN CORPUSCULAR VOLUME 92.8 fl (82.0-101.0); MEAN PLATELET VOLUME 10.4 fl (7.4-10.4); MONOCYTE # 0.7 10^3/ul (0.3-0.9); MONOCYTES % 9.6 % (0.0-11.0); NEUTROPHIL # 3.5 10^3/ul (1.6-7.5); NEUTROPHILS % 46.4 % (39.0-77.0); PLATELET COUNT 328 10^3/UL (140-415); RED BLOOD COUNT 4.01 10^6/ul (4.20-5.40); RED CELL DISTRIBUTION WIDTH 13.7 % (11.5-14.5); WHITE BLOOD COUNT 7.6 10^3/ul (4.8-10.8)
[2016-10-12 07:12] LABS: ALBUMIN 3.8 g/dl (3.3-4.9); POTASSIUM 3.2 mmol/L (3.5-5.1)
[2016-10-12 07:14] LABS: CREATININE 0.78 mg/dl (0.44-1.00); INR 1.01; PROTIME 13.3 Sec (12.2-14.2)
[2016-10-12 07:15] LABS: ALBUMIN/GLOBULIN RATIO 1.11; BILIRUBIN,INDIRECT 0.3 mg/dl (0-1.1); BILIRUBIN,TOTAL 0.3 mg/dl (0.2-1.3); CALCIUM 8.7 mg/dl (8.4-10.2); TOTAL PROTEIN 7.2 g/dl (6.1-8.1)
[2016-10-12 07:16] LABS: PARTIAL THROMBOPLASTIN TIME 28.6 Sec (25.0-35.0)
[2016-10-12 07:30] VITALS: BP 152/72; RESP 16
[2016-10-12] MEDS: DOCUSATE SODIUM 100 MG CAP PO SCH ×2 (08:01→19:54)
[2016-10-12] MEDS ORDERED: POTASSIUM CHLORIDE 20 MEQ in DEXTROSE 5% 100 ML IV SCH (10:30)
--- NOTE | 2016-10-12 12:41 | PN ---
Date/Time of Note Date/Time of Note DATE: 10/12/16 TIME: 12:40 Assessment/Plan Lines/Catheters IV Catheter Type (from [facility]): Saline Lock Sahni in Place (from [facility]): No Assessment/Plan Chief Complaint/Hosp Course 1. Pancreatitis probably secondary to gallstones improved 2. Cholelithiasis with mild cholecystitis s/p 3 port lap tyson, ioc, liver bx 3. Transaminitis with dilated biliary system and positive IOC (despite the official read and negative mrcp). -gi for ercp 4. Morbid obesity with BMI of 35 and comorbidities -Nutrition optimization encouraged -Exercise encouraged 5. Hypertension -Nutrition and medication optimization -Weight loss encouraged 6. Dyslipidemia -Nutrition and medication optimization -Weight loss encouraged 7. Anemia without evidence of acute blood loss -Monitor Thank you, Problems: Subjective 24 Hr Interval Summary ERCP pending today. s/p 3 port lap tyson, liver bx, ioc > probable choledocholithiasis despite the final read. Min pain. Denies fevers or chills. No nausea vomiting. No chest pain or shortness of breath. No visual or neurologic changes. No dysuria. Bowel function. No headache. No seizure. No rashes. Exam/Review of Systems Vital Signs Vitals Vital Signs Date Time Temp Pulse Resp B/P Pulse Ox O2 Delivery O2 Flow Rate FiO2 10/12/16 07:30 98.2 64 16 152/72 93 10/11/16 09:11 3.0 10/09/16 16:28 Nasal Cannula Intake and Output 10/11/16 10/11/16 10/12/16 15:00 23:00 07:00 Intake Total 640 ml 290 ml Balance 640 ml 290 ml Results Result Diagram: 10/12/16 0545 10/12/16 0545 JOLENE THAKKAR MD Oct 12, 2016 12:41
--- NOTE | 2016-10-12 17:06 | RADRPT ---
PROCEDURE: XR Chest. CLINICAL INDICATION: Cholecystitis. Preoperative. TECHNIQUE: Single frontal view. COMPARISON: None. FINDINGS: The lungs are clear. The heart size is normal. There is no pleural effusion. There is no pneumothorax. IMPRESSION: 1. Normal chest radiograph. RPTAT: QQ .Sergei Ugarte MD, MD Date Time Electronically viewed and signed by .Sergei Ugarte MD, on 10/12/2016 17:06 .R/
[2016-10-12] MEDS ORDERED: POTASSIUM CHLORIDE 250 ML IVPB SCH (18:30)
[2016-10-12 19:30] VITALS: BP 197/91; RESP 18
[2016-10-12] MEDS ORDERED: POTASSIUM CHLORIDE 20 MEQ in SOD CHLORIDE 0.9% 100 ML IVPB ONE (19:30)
[2016-10-12] MEDS: hydrALAzine 20 MG INJ IV PRN (19:55)
[2016-10-12 20:30] VITALS: BP 165/85
[2016-10-12] MEDS: ACETAMINOPHEN 325 MG TAB PO PRN (23:26)
[2016-10-12 23:30] VITALS: BP 149/72
--- NOTE | 2016-10-12 23:34 | PN ---
Date/Time of Note Date/Time of Note DATE: 10/12/16 TIME: 23:33 Assessment/Plan VTE Prophylaxis VTE Prophylaxis Intervention: other Lines/Catheters IV Catheter Type (from [facility]): Saline Lock Urinary Cath still in place: No Assessment/Plan Chief Complaint/Hosp Course S/P LAP DWAYNE CBD STONE PLAN PER ERCP per gi k[facility] Problems: Subjective 24 Hr Interval Summary Respiratory: no complaints Cardiovascular: no complaints Gastrointestinal: no complaints Exam/Review of Systems Vital Signs Vitals Vital Signs Date Time Temp Pulse Resp B/P Pulse Ox O2 Delivery O2 Flow Rate FiO2 10/12/16 19:30 99.1 62 18 197/91 96 10/11/16 09:11 3.0 10/09/16 16:28 Nasal Cannula Intake and Output 10/11/16 10/11/16 10/12/16 15:00 23:00 07:00 Intake Total 640 ml 290 ml Balance 640 ml 290 ml Exam Neck: supple Respiratory: clear to auscultation Cardiovascular: regular rate and rhythm Musculoskeletal: nl extremities to inspection Results Result Diagram: 10/12/16 0545 10/12/16 0545 Results 24 hrs Laboratory Tests Test 10/12/16 05:45 Activated Partial Thromboplast Time 28.6 Alanine Aminotransferase (ALT/SGPT) 146 H Albumin 3.8 Albumin/Globulin Ratio 1.11 Alkaline Phosphatase 206 H Anion Gap 16 Aspartate Amino Transf (AST/SGOT) 91 H Basophils # 0.1 Basophils % 0.9 Blood Urea Nitrogen 9 Calcium Level 8.7 Carbon Dioxide Level 31 Chloride Level 101 Creatinine 0.78 Direct Bilirubin 0.00 Eosinophils # 0.4 Eosinophils % 5.8 Globulin 3.40 H Glucose Level 112 Hematocrit 37.2 Hemoglobin 11.9 L INR International Normalized Ratio 1.01 Indirect Bilirubin 0.3 Lymphocytes # 2.8 Lymphocytes % 37.0 Mean Corpuscular Hemoglobin 29.7 Mean Corpuscular Hemoglobin Concent 32.0 Mean Corpuscular Volume 92.8 Mean Platelet Volume 10.4 Monocytes # 0.7 Monocytes % 9.6 Neutrophils # 3.5 Neutrophils % 46.4 Nucleated Red Blood Cells # 0.0 Nucleated Red Blood Cells % 0.0 Platelet Count 328 Potassium Level 3.2 L Prothrombin Time 13.3 Prothrombin Time Ratio 1.0 Red Blood Count 4.01 L Red Cell Distribution Width 13.7 Sodium Level 145 H Total Bilirubin 0.3 Total Protein 7.2 White Blood Count 7.6 # Medications Medications Current Medications Acetaminophen/ Hydrocodone Bitart ([place] (5/325)) 1 tab Q4H PRN PO PAIN Last administered on 10/11/16 13:02; Admin Dose 1 TAB; Start 10/08/16 at 17:30 Acetaminophen 650 mg 650 mg Q4H PRN PO PAIN AND OR ELEVATED TEMP Last administered on 10/12/16 23:26; Admin Dose 650 MG; Start 10/08/16 at 17:30 Ceftriaxone Sodium (Rocephin) 50 ml @ 100 mls/hr Q24H IVPB Last administered on 10/12/16 03:04; Admin Dose 100 MLS/HR; Start 10/09/16 at 03:00 Docusate Sodium (Colace) 100 mg BID PO Last administered on 10/12/16 19:54; Admin Dose 100 MG; Start 10/08/16 at 21:00 Ondansetron HCl (Zofran Inj) 4 mg Q6H PRN IV NAUSEA AND/OR VOMITING; Start 10/08 at 17:30 Zolpidem Tartrate (Ambien) 5 mg HS PRN PO INSOMNIA; Start 10/08/16 at 17:30 Pantoprazole (Protonix Tab) 40 mg DAILY@06 PO Last administered on 10/11/16 05 :46; Admin Dose 40 MG; Start 10/10/16 at 06:00 Polyethylene Glycol (Miralax) 17 gm DAILY PRN PO CONSTIPATION Last administered on 10/11/16 21:50; Admin Dose 17 GM; Start 10/11/16 at 22:00 Hydralazine HCl (Apresoline) 10 mg Q6H PRN IV SBP > 160 Last administered on 19:55; Admin Dose 10 MG; Start 10/11/16 at 22:00 JOSSY BAÑUELOS MD Oct 12, 2016 23:34
[2016-10-13] VITALS (13 sets, daily range): BP systolic 119–178; BP diastolic 6–81; PULSE 56–86; RESP 12–20
[2016-10-13] MEDS: CEFTRIAXONE 1 GM/50 ML (PMX) 50 ML IVPB SCH (03:21)
[2016-10-13 05:23] LABS: POTASSIUM 3.5 mmol/L (3.5-5.1)
[2016-10-13 05:26] LABS: CREATININE 0.79 mg/dl (0.44-1.00)
[2016-10-13 05:27] LABS: CALCIUM 8.9 mg/dl (8.4-10.2)
[2016-10-13] MEDS: PANTOPRAZOLE (EC) 40 MG TAB PO SCH ×2 (06:00→06:10)
[2016-10-13] MEDS ORDERED: LIDOCAINE 2% (SDV) 5 ML INJ ONE (07:00)
[2016-10-13] MEDS: DOCUSATE SODIUM 100 MG CAP PO SCH ×2 (08:41→20:25)
[2016-10-13] MEDS: AMLODIPINE 5 MG TAB PO SCH (08:41)
--- NOTE | 2016-10-13 10:11 | PN ---
Date/Time of Note Date/Time of Note DATE: 10/13/16 TIME: 10:10 Assessment/Plan Lines/Catheters IV Catheter Type (from [facility]): Saline Lock Sahni in Place (from [facility]): No Assessment/Plan Chief Complaint/Hosp Course 1. Pancreatitis probably secondary to gallstones improved 2. Cholelithiasis with mild cholecystitis s/p 3 port lap tyson, ioc, liver bx 3. Transaminitis with dilated biliary system and positive IOC (despite the official read and negative mrcp). -gi for ercp 4. Morbid obesity with BMI of 35 and comorbidities -Nutrition optimization encouraged -Exercise encouraged 5. Hypertension -Nutrition and medication optimization -Weight loss encouraged 6. Dyslipidemia -Nutrition and medication optimization -Weight loss encouraged 7. Anemia without evidence of acute blood loss -Monitor Thank you, Problems: Subjective 24 Hr Interval Summary ERCP pending. s/p 3 port lap tyson, liver bx, ioc > probable choledocholithiasis despite the final read. Min pain. Denies fevers or chills. No nausea vomiting. No chest pain or shortness of breath. No visual or neurologic changes. No dysuria. Bowel function. No headache. No seizure. No rashes. Exam/Review of Systems Vital Signs Vitals Vital Signs Date Time Temp Pulse Resp B/P Pulse Ox O2 Delivery O2 Flow Rate FiO2 10/13/16 07:33 98.2 63 18 158/77 94 Room Air 10/12/16 20:00 2.0 Intake and Output 10/12/16 10/12/16 10/13/16 15:00 23:00 07:00 Intake Total 340 ml 530 ml Output Total 100 ml Balance 340 ml 430 ml Exam Free Text/Dictation Constitutional: alert, obese, oriented, No distress Psych: nl mood/affect, No anxiety, No confusion Head: atraumatic, normocephalic Eyes: EOMI, PERRL, nl conjunctiva, No icteric ENMT: mucosa pink and moist, nl external ears & nose, nl lips & teeth Neck: non-tender, supple, No jvd Respiratory: normal air movement, No congested cough, No labored breathing Cardiovascular: nl pulses, regular rate and rhythm, No edema Gastrointestinal: soft, min tender, No firm, No rebound or guarding Musculoskeletal: nl extremities to inspection, nl gait and stance, No joint tenderness Extremities: normal pulses, No calf tenderness, No cyanosis Neurological: nl mental status, nl speech, nl strength, No confused Skin: nl turgor, No diaphoresis, No rash or lesions Lymph: nl lymph nodes Results Result Diagram: 10/12/16 0545 10/13/16 0415 JOLENE THAKKAR MD Oct 13, 2016 10:11
[2016-10-13] MEDS ORDERED: IOHEXOL 300MG/ML 30 ML BTL ONE (11:48)
[2016-10-13] MEDS ORDERED: INDOMETHACIN 50 MG SUPP PR ONE (12:00)
--- NOTE | 2016-10-13 12:17 | HPN ---
Date/Time of Note Date/Time of Note DATE: 10/13/16 TIME: 12:17 Interval H&P Admission Note Pt. seen H&P reviewed: No system changes ESTEBAN ANG MD Oct 13, 2016 12:17
[2016-10-13] MEDS ORDERED: PROPOFOL 20 ML ONE (12:23)
[2016-10-13] MEDS ORDERED: FENTAnyl 50 MCG/ML VIAL ONE (12:24)
[2016-10-13] MEDS ORDERED: SUCCINYLCHOLINE CHLORIDE 100 MG/5 ML SYG IV ONE (12:24)
[2016-10-13] MEDS ORDERED: ROCURONIUM 50 MG INJ ONE (12:24)
--- NOTE | 2016-10-13 12:36 | CONS ---
DATE OF ADMISSION: 10/08/2016 DATE OF CONSULTATION: 10/12/2016 HISTORY OF PRESENT ILLNESS: The patient is a 71-year-old female who presented with abdominal pain, nausea, vomiting. She had a dilatation of the bile duct and ultrasound showed multiple gallstones a nd pericholecystic fluid. The patient underwent surgery. MRCP was negative. Laparoscopic cholecys tectomy was done, but during laparoscopic cholecystectomy, Dr. Urban Devine performed intraoperati ve cholangiogram and he had a lot of resistance with the meniscus sign positive in the distal part o f the bile duct, so GI consult was called in for ERCP and possible removal of the stone. The patien t continues to have some abdominal pain. PHYSICAL EXAMINATION: VITALS: Stable. ABDOMEN: Benign, other than tenderness in incisional area. LUNGS: Clear. EXTREMITIES: No edema. CENTRAL NERVOUS SYSTEM: Grossly within normal limits. IMPRESSION: 1. Status post cholecystectomy for biliary pancreatitis. 2. Morbid obesity. 3. Hypertension. 4. Dyslipidemia. 5. Anemia. 6. Possible bile duct stone. PLAN: Proceed with ERCP; however, I called the GI lab at 9:30, spoke to Rhonda in the morning and ye there was no opening in the GI lab, so the procedure had to be done today. I had an extensi ve discussion with the son face to face all the complications were explained. He understood, and th e patient and the family agreed for the procedure. Dictated By: ESTEBAN TEAGUE/NTS Conf#: [id number] DID#: [id number] CC: JOSSY BAÑUELOS MD;*EndCC*
[2016-10-13] MEDS ORDERED: ONDANSETRON 4 MG INJ ONE (13:05)
[2016-10-13] MEDS ORDERED: DEXAMETHASONE 4 MG/ML 1 ML INJ ONE (13:05)
[2016-10-13] MEDS ORDERED: NEOSTIGMINE 3 MG/3 ML SYRINGE ONE (13:19)
[2016-10-13] MEDS ORDERED: GLYCOPYRROLATE 0.4 MG INJ ONE (13:19)
[2016-10-13] MEDS ORDERED: FENTAnyl 50 MCG/ML VIAL IV PRN ×2 (13:30)
[2016-10-13] MEDS ORDERED: LABETALOL HCL 20MG INJ IV PRN (13:30)
[2016-10-13] MEDS ORDERED: ONDANSETRON 4 MG INJ IV PRN (13:30)
--- NOTE | 2016-10-13 14:33 | GILP ---
DATE OF PROCEDURE: PROCEDURE: ERCP, sphincterotomy, removal of the stone and stenting. INDICATION: A 71-year-old female undergoing this procedure for the positive meniscus sign and diffi culty for going into the duodenum on intraoperative cholangiogram as per Dr. Devine. The purpose o f this procedure is to evaluate the biliary system and perform therapeutic endoscopy at the same kenan e. The risk of the procedure, related and unrelated complications, anesthetic risks, alternatives w ere thoroughly discussed with the patient and also with the son, and both of them were in agreement regarding the procedure. DESCRIPTION OF PROCEDURE: Thus, after obtaining informed consent, the patient was brought to the O R room #5, intubated and placed in a prone position. The patient received general anesthesia by Dr. Odom. Ancef was given prior to the procedure. Indocin suppository was administered. After optima l sedation, scope was passed with much ease into the esophagus, advanced further down into stomach a nd duodenum. Ampulla was identified, selectively cannulated. The wire was deeply cannulated into t he right hepatic duct, but the sphincterotome would not go easily indicating that there was a stone in the ampulla impacted or there was a stricture preventing the free passage of the sphincterotome. At this point, after applying some pressure, could manage to pass the sphincterotome beyond the amp lee deeper inside. Cholangiogram was obtained. Cystic duct appeared normal. The meniscus sign wa s positive. Large sphincterotomy was done. Multiple small stones came out and also sludge came out . A 9 to 12 mm balloon was used, the 12 mm balloon would exit easily without any problem but the dr pena was not excellent. Bile duct was swept multiple times and since the drainage was not good, d ecided to deploy the stent. So, a 10-Bel[place] 5 cm stent was successfully deployed and there was exce llent drainage after the deployment of the stent. Reviewing the ERCP films, I looked at the intrapa pillary portion of the bile duct. There was definitely a stricture, most probably related to the st one and this stricture was only in the intrapapillary portion of the bile duct. TOTAL FLUOROSCOPY TIME: 5 seconds. IMPRESSION: 1. Large sphincterotomy done. 2. Multiple small stones and sludge removed. 3. 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 4. Stent 10-Belgian 5 cm successfully deployed with excellent drainage. 5. Fluoroscopy time was just 5 seconds. PLAN: 1. At this point, is to monitor LFT. 2. If the patient is asymptomatic and fully awake, we will start her on a clear liquid diet and adv ance it. 3. We will remove the stent after 4 months and I discussed this with the son after the procedure. Dictated By: ESTEBAN TEAGUE/LORA Conf#: [id number] DID#: [id number] CC: ESTEBAN ANG MD; JOLENE DEVINE MD; JOSSY BAÑUELOS MD;*End*
--- NOTE | 2016-10-13 15:01 | RADRPT ---
PROCEDURE: Intraoperative imaging for ERCP with fluoroscopy. CLINICAL INDICATION: Right upper quadrant pain. Intraoperative. TECHNIQUE: 5 images of the right upper quadrant of the abdomen were obtained in the operating room with an image intensifier. No radiologist was in attendance. 5.1 seconds of fluoroscopy time was used. COMPARISON: Intraoperative cholangiogram dated 10/09/2016. FINDINGS: Images demonstrate the endoscope in position. Contrast was injected into the common bile duct. The common bile duct appears mildly dilated. Contrast also enters the cystic duct. Surgical clips are noted across the cystic duct. There is no evidence of leak. The final image demonstrates a stent in the distal common bile duct in satisfactory position. IMPRESSION: 1. ERCP as described above. 2. Placement of common bile duct stent in satisfactory position. RPTAT: QQ .Sergei Ugarte MD, Date Time Electronically viewed and signed by .Sergei Ugarte MD, MD on 10/13/2016 15:00 .R/
[2016-10-13] MEDS: hydrALAzine 20 MG INJ IV PRN (17:20)
[2016-10-13] MEDS: ACETAMINOPHEN 325 MG TAB PO PRN (18:55)
--- NOTE | 2016-10-13 20:05 | PN ---
Date/Time of Note Date/Time of Note DATE: 10/13/16 TIME: 20:03 Assessment/Plan VTE Prophylaxis VTE Prophylaxis Intervention: other Lines/Catheters IV C[facility]ter Type (from [facility]): Peripheral IV Urinary Cath still in place: No Assessment/Plan Chief Complaint/Hosp Course S/P LAP DWAYNE CBD STONE s/p ercp and stent placement PLAN labs am Problems: Subjective 24 Hr Interval Summary Subjective hx not possible: other (s/p ercp and stent) Cardiovascular: no complaints Gastrointestinal: no complaints Genitourinary: no complaints Musculoskeletal: no complaints Exam/Review of Systems Vital Signs Vitals Vital Signs Date Time Temp Pulse Resp B/P Pulse Ox O2 Delivery O2 Flow Rate FiO2 10/13/16 18:18 86 129/60 10/13/16 14:35 98.4 93 Nasal Cannula 10/13/16 14:12 17 2.0 Intake and Output 10/12/16 10/12/16 10/13/16 15:00 23:00 07:00 Intake Total 340 ml 530 ml Output Total 100 ml Balance 340 ml 430 ml Exam Neck: supple Respiratory: clear to auscultation Cardiovascular: regular rate and rhythm Gastrointestinal: soft Musculoskeletal: nl extremities to inspection Results Result Diagram: 10/12/16 0545 10/13/16 0415 Results 24 hrs Laboratory Tests Test 10/13/16 04:15 Anion Gap 16 Blood Urea Nitrogen 11 Calcium Level 8.9 Carbon Dioxide Level 31 Chloride Level 101 Creatinine 0.79 Glucose Level 111 Potassium Level 3.5 Sodium Level 144 Medications Medications Current Medications Acetaminophen/ Hydrocodone Bitart ([place] (5/325)) 1 tab Q4H PRN PO PAIN Last administered on 10/11/16 13:02; Admin Dose 1 TAB; Start 10/08/16 at 17:30 Acetaminophen 650 mg 650 mg Q4H PRN PO PAIN AND OR ELEVATED TEMP Last administered on 10/13/16 18:55; Admin Dose 650 MG; Start 10/08/16 at 17:30 Ceftriaxone Sodium (Rocephin) 50 ml @ 100 mls/hr Q24H IVPB Last administered on 10/13/16 03:21; Admin Dose 100 MLS/HR; Start 10/09/16 at 03:00 Docusate Sodium (Colace) 100 mg BID PO Last administered on 10/12/16 19:54; Admin Dose 100 MG; Start 10/08/16 at 21:00 Ondansetron HCl (Zofran Inj) 4 mg Q6H PRN IV NAUSEA AND/OR VOMITING; Start 10/08 at 17:30 Zolpidem Tartrate (Ambien) 5 mg HS PRN PO INSOMNIA; Start 10/08/16 at 17:30 Pantoprazole (Protonix Tab) 40 mg DAILY@06 PO Last administered on 10/11/16 05 :46; Admin Dose 40 MG; Start 10/10/16 at 06:00 Polyethylene Glycol (Miralax) 17 gm DAILY PRN PO CONSTIPATION Last administered on 10/11/16 21:50; Admin Dose 17 GM; Start 10/11/16 at 22:00 Hydralazine HCl (Apresoline) 10 mg Q6H PRN IV SBP > 160 Last administered on 17:20; Admin Dose 10 MG; Start 10/11/16 at 22:00 Amlodipine Besylate (Norvasc) 5 mg DAILY PO ; Start 10/13/16 at 09:00 JOSSY BAÑUELOS MD Oct 13, 2016 20:05
[2016-10-14] MEDS: CEFTRIAXONE 1 GM/50 ML (PMX) 50 ML IVPB SCH (02:43)
[2016-10-14 05:01] LABS: ADD SCAN DIFF NO
[2016-10-14 05:18] LABS: BASOPHILS % 0.4 % (0.0-2.0); EOSINOPHILS # 0.1 10^3/ul (0.0-0.5); EOSINOPHILS % 1.2 % (0.0-7.0); HEMATOCRIT 34.7 % (37.0-47.0); HEMOGLOBIN 11.3 g/dl (12.0-16.0); MEAN CORPUSCULAR HEMOGLOBIN 29.7 pg (29.0-33.0); MEAN CORPUSCULAR HGB CONC 32.6 g/dl (32.0-37.0); MEAN CORPUSCULAR VOLUME 91.1 fl (82.0-101.0); MEAN PLATELET VOLUME 10.1 fl (7.4-10.4); MONOCYTE # 0.7 10^3/ul (0.3-0.9); MONOCYTES % 9.3 % (0.0-11.0); NEUTROPHIL # 4.9 10^3/ul (1.6-7.5); NEUTROPHILS % 62.7 % (39.0-77.0); PLATELET COUNT 343 10^3/UL (140-415); RED BLOOD COUNT 3.81 10^6/ul (4.20-5.40); RED CELL DISTRIBUTION WIDTH 13.2 % (11.5-14.5); WHITE BLOOD COUNT 7.8 10^3/ul (4.8-10.8)
[2016-10-14] MEDS: PANTOPRAZOLE (EC) 40 MG TAB PO SCH (05:28)
[2016-10-14 05:37] LABS: ALBUMIN 3.6 g/dl (3.3-4.9); POTASSIUM 3.6 mmol/L (3.5-5.1)
[2016-10-14 05:40] LABS: ALBUMIN/GLOBULIN RATIO 1.09; BILIRUBIN,INDIRECT 0.2 mg/dl (0-1.1); BILIRUBIN,TOTAL 0.2 mg/dl (0.2-1.3); CALCIUM 8.7 mg/dl (8.4-10.2); CREATININE 0.81 mg/dl (0.44-1.00); TOTAL PROTEIN 6.9 g/dl (6.1-8.1)
[2016-10-14 07:36] VITALS: BP 131/62; RESP 18
[2016-10-14] MEDS: DOCUSATE SODIUM 100 MG CAP PO SCH (09:11)
[2016-10-14] MEDS: AMLODIPINE 5 MG TAB PO SCH (09:12)
--- NOTE | 2016-10-14 13:15 | PDOCDIS ---
Discharge Instructions CONDITION Patient Condition: Good HOME CARE INSTRUCTIONS: Special Diet: clear liquid ACTIVITY: Activity Restrictions: Slowly Increase Activity FOLLOW UP/APPOINTMENTS Appointments f/u own pcp [address] carmona 1 wk,see dr hummel 2 wks JOSSY BAÑUELOS MD Oct 14, 2016 13:15
[2016-10-14] MEDS ORDERED: POLY17PO6 PO (13:16)
[2016-10-14] MEDS ORDERED: ACET325T40 PO (13:16)
[2016-10-14] MEDS ORDERED: AMLO-145 PO (13:16)
[2016-10-14] MEDS ORDERED: PANT40TA4 PO (13:16)
[2016-10-14] MEDS: ACETAMINOPHEN 325 MG TAB PO PRN (17:29)
--- NOTE | 2016-10-14 18:25 | PN ---
DATE: 10/14/2016 SUBJECTIVE: No complaint. No abdominal pain, tolerating feeding. OBJECTIVE: VITAL SIGNS: Stable. ABDOMEN: Benign. CARDIOVASCULAR: Grossly within normal limits. CENTRAL NERVOUS SYSTEM: Grossly within normal limit. EXTREMITIES: No edema. LABORATORY DATA: CBC is normal. WBC 7.8. Liver function tests much better, alkaline phosphatase w as just 209, has come down to 158. IMPRESSION: 1. Status post sphincterotomy and removal of the stone and placement of a stent. 2. Status post cholecystectomy. 3. Mild anemia. PLAN: At this point, is to continue present care. The patient will be discharged. Discussed with [id number] and also the son to bring the patient back to the office in 2 months so that we can remove the stent. Dictated By: ESTEBAN TEAGUE/LORA Conf#: [id number] DID#: [id number] CC: JOSSY BAÑUELOS MD; ESTEBAN ANG MD;*EndCC*
--- NOTE | 2016-10-14 19:15 | RADRPT ---
Vent Rate: 62 bpm RR Interval: 0 msec MI Interval: 152 msec QRS Duration: 96 msec QT Interval: 492 msec QTC Interval: 499 msec P-R-T [place]: 63 - 63 - -76 degrees Normal sinus rhythm T wave abnormality, consider inferior ischemia T wave abnormality, consider anterolateral ischemia Prolonged QT Abnormal ECG Electronically Signed By: Kyaw Moon [id number]
--- NOTE | 2016-10-15 01:17 | PN ---
Date/Time of Note Date/Time of Note DATE: 10/14/16 TIME: 11:15 Assessment/Plan Lines/Catheters IV Catheter Type (from [facility]): Saline Lock Sahni in Place (from [facility]): No Assessment/Plan Chief Complaint/Hosp Course 1. Pancreatitis probably secondary to gallstones improved 2. Cholelithiasis with mild cholecystitis s/p 3 port lap tyson, ioc, liver bx 3. Transaminitis with dilated biliary system and positive IOC and Choledocholithiasis s/p ERCP -dc planning 4. Morbid obesity with BMI of 35 and comorbidities -Nutrition optimization encouraged -Exercise encouraged 5. Hypertension -Nutrition and medication optimization -Weight loss encouraged 6. Dyslipidemia -Nutrition and medication optimization -Weight loss encouraged 7. Anemia without evidence of acute blood loss -Monitor Thank you, Late entry 10/14 Problems: Subjective 24 Hr Interval Summary s/p ERCP with stone removal. s/p 3 port lap tyson, liver bx, ioc. Min pain. Denies fevers or chills. No nausea vomiting. No chest pain or shortness of breath. No visual or neurologic changes. No dysuria. Bowel function. No headache. No seizure. No rashes. Exam/Review of Systems Vital Signs Vitals Vital Signs Date Time Temp Pulse Resp B/P Pulse Ox O2 Delivery O2 Flow Rate FiO2 10/14/16 11:22 Nasal Cannula 2.0 10/14/16 07:36 97.9 54 18 131/62 94 Exam Free Text/Dictation Constitutional: alert, obese, oriented, No distress Psych: nl mood/affect, No anxiety, No confusion Head: atraumatic, normocephalic Eyes: EOMI, PERRL, nl conjunctiva, No icteric ENMT: mucosa pink and moist, nl external ears & nose, nl lips & teeth Neck: non-tender, supple, No jvd Respiratory: normal air movement, No congested cough, No labored breathing Cardiovascular: nl pulses, regular rate and rhythm, No edema Gastrointestinal: soft, min tender, No firm, No rebound or guarding Musculoskeletal: nl extremities to inspection, nl gait and stance, No joint tenderness Extremities: normal pulses, No calf tenderness, No cyanosis Neurological: nl mental status, nl speech, nl strength, No confused Skin: nl turgor, No diaphoresis, No rash or lesions Lymph: nl lymph nodes Results Result Diagram: 3/15/17 0410 10/14/16 0410 JOLENE THAKKAR MD Oct 15, 2016 01:17
== END 2016-10-14 17:30 | disposition home or self-care (01) | DRG 405 ==
LOC: PP2 16:18
PROVIDERS: ADMIT Internal Medicine Nephrology; ATTEND Internal Medicine Nephrology
PROC: 0FB04ZZ Excision of Liver, Percutaneous Endoscopic Approach (ICD-10-PCS; 2016-10-09)
PROC: 0FT44ZZ Resection of Gallbladder, Percutaneous Endoscopic Approach (ICD-10-PCS; principal; 2016-10-09 13:00)
PROC: 0FCC8ZZ Extirpation of Matter from Ampulla of Vater, Via Natural or Artificial Opening Endoscopic (ICD-10-PCS; 2016-10-13)
PROC: 0F7C8DZ Dilation of Ampulla of Vater with Intraluminal Device, Via Natural or Artificial Opening Endoscopic (ICD-10-PCS; 2016-10-13)
DX: K80.00 Calculus of gallbladder with acute cholecystitis without obstruction (principal); K85.10 Biliary acute pancreatitis without necrosis or infection; K76.89 Other specified diseases of liver; N39.0 Urinary tract infection, site not specified; R74.0 Nonspecific elevation of levels of transaminase and lactic acid dehydrogenase [LDH]; D64.9 Anemia, unspecified; E78.5 Hyperlipidemia, unspecified; E66.01 Morbid (severe) obesity due to excess calories; Z68.34 Body mass index [BMI] 34.0-34.9, adult; I10 Essential (primary) hypertension
CPT/HCPCS: 71010; 74300; 74330; 80048; 80053; 82150; 83690; 85025; 85610; 85730; 88304; 88307; 88313; 93005; C2617; C9113; J0330; J0360; J0696; J1100; J1885; J2250; J2405; J2710; J2765; J2795; J3010; J3480; J7042; Q9967

== ENCOUNTER 2016-12-10 08:27 | Day surgery (SDC) | payer OTHER ==
[2016-12-09 13:21] VITALS: BMI 32.7
[~2016-12-10] VITALS: Ht 167.6 cm; Wt 87.0 kg
[2016-12-10] VITALS (16 sets, daily range): BP systolic 110–166; BP diastolic 60–79; PULSE 46–65; RESP 14–18; Ht 167.6 cm; Wt 87.0 kg
[~2016-12-10 08:27] MED LIST: ACET325T40 PO; AMLO-145 PO; CEFAZOLIN 1 GM INJ ONE; PANT40TA4 PO; POLY17PO6 PO
[2016-12-10] MEDS ORDERED: CIPROFLOXACIN 400MG/D5W 200 ML IVPB ONE (09:30)
[2016-12-10 09:44] LABS: ADD SCAN DIFF NO
[2016-12-10 09:50] LABS: BASOPHIL # 0.1 10^3/ul (0.0-0.1); BASOPHILS % 1.1 % (0.0-2.0); EOSINOPHILS # 0.3 10^3/ul (0.0-0.5); EOSINOPHILS % 4.3 % (0.0-7.0); HEMATOCRIT 36.4 % (37.0-47.0); HEMOGLOBIN 12.1 g/dl (12.0-16.0); LYMPHOCYTES # 2.9 10^3/ul (0.8-2.9); LYMPHOCYTES % 41.6 % (15.0-51.0); MEAN CORPUSCULAR HEMOGLOBIN 30.2 pg (29.0-33.0); MEAN CORPUSCULAR HGB CONC 33.2 g/dl (32.0-37.0); MEAN CORPUSCULAR VOLUME 90.8 fl (82.0-101.0); MEAN PLATELET VOLUME 10.6 fl (7.4-10.4); MONOCYTE # 0.7 10^3/ul (0.3-0.9); MONOCYTES % 9.9 % (0.0-11.0); NEUTROPHILS % 42.8 % (39.0-77.0); PLATELET COUNT 248 10^3/UL (140-415); RED BLOOD COUNT 4.01 10^6/ul (4.20-5.40); RED CELL DISTRIBUTION WIDTH 13.5 % (11.5-14.5); WHITE BLOOD COUNT 7.1 10^3/ul (4.8-10.8)
[2016-12-10] MEDS ORDERED: MULT1TAB6 PO (10:04)
[2016-12-10] MEDS ORDERED: METO100T13 PO (10:04)
[2016-12-10] MEDS ORDERED: DICL75TA2 PO (10:04)
[2016-12-10] MEDS ORDERED: FERR325C PO (10:04)
[2016-12-10] MEDS ORDERED: ATOR20TA65 PO (10:04)
[2016-12-10 10:21] LABS: CALCIUM 8.9 mg/dl (8.4-10.2); CREATININE 0.81 mg/dl (0.44-1.00); POTASSIUM 3.9 mmol/L (3.5-5.1)
--- NOTE | 2016-12-10 10:36 | RADRPT ---
Vent Rate: 52 bpm RR Interval: 0 msec OR Interval: 162 msec QRS Duration: 92 msec QT Interval: 532 msec QTC Interval: 494 msec P-R-T [place]: 58 - 66 - 56 degrees Sinus bradycardia Possible Lateral infarct , age undetermined Abnormal ECG Electronically Signed By: Geoffrey Pathak [id number]
[2016-12-10] MEDS ORDERED: INDOMETHACIN 50 MG SUPP PR ONE (10:47)
[2016-12-10] MEDS ORDERED: IOHEXOL 300MG/ML 30 ML BTL ONE (10:47)
[2016-12-10] MEDS ORDERED: MIDAZOLAM 1 MG/ML 2 ML INJ ONE (10:58)
[2016-12-10] MEDS ORDERED: FENTAnyl 50 MCG/ML VIAL ONE (10:58)
[2016-12-10] MEDS ORDERED: PROPOFOL 20 ML ONE ×2 (11:42)
[2016-12-10] MEDS ORDERED: ONDANSETRON 4 MG INJ ONE (11:42)
[2016-12-10] MEDS ORDERED: LIDOCAINE 2% (SDV) 5 ML INJ ONE (11:42)
[2016-12-10] MEDS ORDERED: MEPERIDINE 25 MG INJ IV PRN (12:00)
[2016-12-10] MEDS ORDERED: HYDROmorphONE (0.2 MG/ML) 10ML SYG IV PRN ×2 (12:00)
[2016-12-10] MEDS ORDERED: DIPHENHYDRAMINE 50 MG INJ IV PRN (12:00)
[2016-12-10] MEDS ORDERED: FENTAnyl 50 MCG/ML VIAL IV PRN (12:00)
[2016-12-10] MEDS ORDERED: ONDANSETRON 4 MG INJ IV PRN (12:00)
--- NOTE | 2016-12-10 12:16 | GILP ---
DATE OF PROCEDURE: 12/10/2016 PROCEDURE PERFORMED: ERCP and removal of the stent and stone. SURGEON: Esteban Spicer MD INDICATION: A 71-year-old female undergoing this procedure for the removal of the stent and the sto ne. The risk of the procedure, related and unrelated complications, anesthetic risks, alternatives discussed and informed consent was obtained. DESCRIPTION OF PROCEDURE: The patient was brought to the OR room #5, sedated by Dr. Diamond, placed in a prone position. The patient received Cipro 400 mg IV piggyback prior to the procedure. After optimum sedation, the scope was passed with much ease into the esophagus, advanced further down into stomach and duodenum. Stent was identified. With the help of snare, it was pulled out through the biopsy channel. Then, with the help of a 9 to 12 balloon with a guidewire inside, the bile duct wa s selectively cannulated. Some debris was seen in the distal part of the bile duct. Bile duct was swept multiple times until the cholesterol stone, soft in the form of mud came out. Bile duct was s wept almost for 10 times after that. No stone was left behind. The occlusive cholangiogram was nor mal. Scope was removed with good patient tolerance. IMPRESSION: 1. Removal of the stent. 2. Removal of the cholesterol stone in the form of mud. 3. Normal cholangiogram after the removal of the stone. No stone was left behind. 4. Fluoroscopy time was 2 seconds. PLAN: Monitor LFT as an outpatient. If patient develops any symptoms, abdominal pain, or fever, sh e should come back to the ER. Dictated By: ESTEBAN TEAGUE/LORA Conf#: [id number] DID#: [id number] CC: ; ESTEBAN SPICER MD;*EndCC*
--- NOTE | 2016-12-10 13:10 | RADRPT ---
PROCEDURE: Intraoperative imaging for ERCP with fluoroscopy. CLINICAL INDICATION: Right upper quadrant pain. Intraoperative. TECHNIQUE: 2 images of the right upper quadrant of the abdomen were obtained in the operating room with an image intensifier. No radiologist was in attendance. 2.6 seconds of fluoroscopy time was used. COMPARISON: 10/13/2016. FINDINGS: Images demonstrate an endoscope in position and contrast injected into the common bile duct. Surgic al clips are present from previous cholecystectomy. The previously noted stent is not visualized. Th e common bile duct is not dilated. There is no filling defect visualized. A balloon sweep was made . IMPRESSION: 1. ERCP as described above. RPTAT: QQ .Sergei Ugarte MD, Date Time Electronically viewed and signed by .Sergei Ugarte MD, on 12/10/2016 13:09 .R/
== END 2016-12-10 13:25 | disposition home or self-care (01) ==
LOC: SDS 08:27
PROVIDERS: ATTEND Internal Medicine Gastroenterology
DX: K80.50 Calculus of bile duct without cholangitis or cholecystitis without obstruction (principal); I10 Essential (primary) hypertension; E78.5 Hyperlipidemia, unspecified; E66.9 Obesity, unspecified; Z68.31 Body mass index [BMI] 31.0-31.9, adult
CPT/HCPCS: 43264; 43275; 74330; 80048; 85025; 93005; J0690; J0744; J1170; J2250; J2405; J3010; Q9967; Z7512; Z7610